=== PATIENT | female | born 1985 | race Caucasian/White ===

== ENCOUNTER → 2017-02-02 | Outpatient (CLI) | payer MEDICAID ==
--- NOTE | 2017-02-02 16:07 | Diagnostic Imaging Report ---
INDICATION: Left knee injury with pain and instability for approximately one month. AP, oblique, and lateral views of the left knee are obtained. FINDINGS: No acute fracture or dislocation is identified. No abnormal lytic or sclerotic focus is seen, and there is no radiopaque foreign body. IMPRESSION: No acute abnormality. Dictated by: Dictated on workstation # [id number]
--- NOTE | 2017-02-02 16:19 | Diagnostic Imaging Report ---
INDICATION: Left hip injury. FINDINGS: Two views of the left hip show no fracture, dislocation, or other acute abnormalities. IMPRESSION: Negative left hip. Dictated by: Dictated on workstation # [id number]
== END ==
LOC: RAD 15:37
PROVIDERS: ATTEND Nurse Practitioner Family
DX: M25.552 Pain in left hip (principal); M25.562 Pain in left knee; G89.29 Other chronic pain
CPT/HCPCS: 73502; 73562